=== PATIENT | female | born 1990 | race Caucasian/White ===

== ENCOUNTER 2016-08-31 13:19 | Emergency (ER) | payer OTHER ==
[~2016-08-31] VITALS: Ht 154.9 cm; Wt 59.0 kg
[2016-08-31 13:25] VITALS: BP 93/57; PULSE 59; RESP 16; TEMP 98.1; O2SAT 99
[2016-08-31] MEDS ORDERED: SODIUM CHLOR 0.9% 1000 ML INJ 1,000 ML IV ONE (13:29)
[2016-08-31] MEDS ORDERED: SODIUM CHLORIDE 0.9% FLUSH 10 ML FLUSH IVF PRN (13:30)
[2016-08-31] MEDS ORDERED: BUPR150CR PO (13:31)
[2016-08-31] MEDS ORDERED: LISD70 PO (13:31)
[2016-08-31 13:39] VITALS: O2SAT 98
--- NOTE | 2016-08-31 13:41 | PD ---
HPI Chief Complaint: Syncope/Near-Syncope Time Seen by Provider: 13:29 Travel History International Travel<30 days: No Contact w/Intl Traveler<30days: No Traveled to known affect area: No History of Present Illness HPI Patient presents with complaints of lightheadedness and dizziness while swimming in the ocean. States she been on the beach for several hours. Admits to eating breakfast but did not eat lunch. Denies any alcohol intake. Admits to poor fluid intake. Unsure status. Reports a syncopal episode during her with no reoccurrence. Denies any chest pain shortness of breath urinary or bowel symptoms. Denies nausea vomiting diarrhea or fever. PFSH Past Medical History ?: Unknown LMP: 5 17 Social History Tobacco Use: No Allergies-Medications (Allergen,Severity, Reaction): Coded Allergies: Percocet (Verified Allergy, Unknown, ITCHING N/V, 08/31/16) Reported Meds & Prescriptions Reported Meds & Active Scripts Active Reported Wellbutrin SR 12 HR (Bupropion HCl) 150 Mg Tab 150 Mg PO Q12HR Vyvanse (Lisdexamfetamine Dimesylate) 70 Mg Cap 70 Mg PO DAILY Review of Systems General / Constitutional: No: Fever Eyes: No: Visual changes HENT: No: Headaches Cardiovascular: No: Chest Pain or Discomfort Respiratory: No: Shortness of Breath Gastrointestinal: No: Abdominal Pain Genitourinary: No: Dysuria Musculoskeletal: No: Pain Skin: No Rash Neurologic: Positive: Dizziness, No: Weakness Psychiatric: No: Depression Endocrine: No: Polydipsia Hematologic/Lymphatic: No: Easy Bruising Physical Exam Narrative GENERAL: Well-nourished, well-developed patient. SKIN: Focused skin assessment warm/dry. HEAD: Normocephalic. EYES: No scleral icterus. No injection or drainage. NECK: Supple, trachea midline. No JVD or lymphadenopathy. CARDIOVASCULAR: Regular rate and rhythm without murmurs, gallops, or rubs. RESPIRATORY: Breath sounds equal bilaterally. No accessory muscle use. GASTROINTESTINAL: Abdomen soft, non-tender, nondistended. MUSCULOSKELETAL: No cyanosis, or edema. BACK: Nontender without obvious deformity. No CVA tenderness. Data Data Last Documented VS Vital Signs Date Time Temp Pulse Resp B/P Pulse Ox O2 Delivery O2 Flow Rate FiO2 08/31/16 14:39 84 18 110/72 98 Room Air 08/31/16 13:25 98.1 Orders Electrocardiogram (08/31/16 13:29) Ed Urine Pregnancytest Poc (08/31/16 13:29) Complete Blood Count With Diff (08/31/16 13:29) Comprehensive Metabolic Panel (08/31/16 13:29) Urinalysis - C+S If Indicated (08/31/16 13:29) Blood Glucose (08/31/16 13:29) Ecg Monitoring (08/31/16 13:29) Iv Access Insert/Monitor (08/31/16 13:29) Oximetry (08/31/16 13:29) Sodium Chloride 0.9% Flush (Ns Flush) (08/31/16 13:30) Sodium Chlor 0.9% 1000 Ml Inj (Ns 1000 M (08/31/16 13:29) Sodium Chlorid 0.9% 500 Ml Inj (Ns 500 M (08/31/16 14:15) Acetaminophen (Tylenol) (08/31/16 14:15) Ibuprofen (Motrin) (08/31/16 15:00) Labs Laboratory Tests Test 08/31/16 08/31/16 13:20 13:28 Urine Collection Type CLEAN CATCH Urine Color STRAW Urine Turbidity CLEAR Urine pH 6.0 Urine Specific [place] 1.002 Urine Protein NEG mg/dL Urine Glucose (UA) NEG mg/dL Urine Ketones NEG mg/dL Urine Occult Blood NEG Urine Nitrite NEG Urine Bilirubin NEG Urine Leukocyte Esterase NEG Urine WBC 0-2 /hpf Urine Squamous Epithelial 0-5 /hpf Cells Urine Bacteria OCC /hpf Microscopic Urinalysis Comment CULT NOT INDICATED Urine Collection Time 13:20 White Blood Count 9.2 TH/MM3 Red Blood Count 4.08 MIL/MM3 Hemoglobin 12.1 GM/DL Hematocrit 36.1 % Mean Corpuscular Volume 88.5 FL Mean Corpuscular Hemoglobin 29.7 PG Mean Corpuscular Hemoglobin 33.6 % Concent Red Cell Distribution Width 11.4 % Platelet Count 266 TH/MM3 Mean Platelet Volume 8.2 FL Neutrophils (%) (Auto) 58.8 % Lymphocytes (%) (Auto) 32.7 % Monocytes (%) (Auto) 6.1 % Eosinophils (%) (Auto) 1.8 % Basophils (%) (Auto) 0.6 % Neutrophils # (Auto) 5.3 TH/MM3 Lymphocytes # (Auto) 3.0 TH/MM3 Monocytes # (Auto) 0.6 TH/MM3 Eosinophils # (Auto) 0.2 TH/MM3 Basophils # (Auto) 0.1 TH/MM3 CBC Comment DIFF FINAL Differential Comment Sodium Level 142 MEQ/L Potassium Level 3.7 MEQ/L Chloride Level 111 MEQ/L Carbon Dioxide Level 20.7 MEQ/L Anion Gap 10 MEQ/L Blood Urea Nitrogen 10 MG/DL Creatinine 0.76 MG/DL Estimat Glomerular Filtration 91 ML/MIN Rate Random Glucose 93 MG/DL Calcium Level 8.7 MG/DL Total Bilirubin 0.3 MG/DL Aspartate Amino Transf 18 U/L (AST/SGOT) Alanine Aminotransferase 23 U/L (ALT/SGPT) Alkaline Phosphatase 54 U/L Total Protein 7.0 GM/DL Albumin 3.6 GM/DL [facility] Medical Decision Making Medical Screen Exam Complete: Yes Emergency Medical Condition: Yes Differential Diagnosis Heat stroke, hypoglycemia, dehydration, over exertion Narrative Course Assessment and plan discussed with patient at bedside. EKG reveals sinus bradycardia rate of 55. Patient's symptoms improved with fluids and Tylenol. Symptom free at discharge. Diagnosis Primary Impression: Heat exhaustion Qualified Code: T67.5XXA - Heat exhaustion, initial encounter Patient Instructions: General Instructions Additional Instructions: Encouraged rest fluids and Motrin, encourage follow-up with PCP, encouraged to return to emergency room with onset of any new symptoms. Please provide a work note for tomorrow Med/Other Pt SpecificInfo: No Meds Exist/No RX given Disposition: 01 DISCHARGE HOME Condition: Good Mason Villareal MD Aug 31, 2016 13:41
[2016-08-31 13:42] LABS: AUTOMATED NEUTROPHIL # 5.3 TH/MM3 (1.8-7.7); BASOPHIL # 0.1 TH/MM3 (0-0.2); BASOPHIL % 0.6 % (0.0-2.0); EOSINOPHIL # 0.2 TH/MM3 (0-0.4); EOSINOPHIL % 1.8 % (0.0-4.0); HEMATOCRIT 36.1 % (35.0-46.0); HEMO FLAGS DIFF FINAL; LYMPH % 32.7 % (9.0-44.0); MEAN CELL VOLUME 88.5 FL (80.0-100.0); MEAN CORPUSCULAR HEMOGLOBIN 29.7 PG (27.0-34.0); MEAN CORPUSCULAR HGB CONC 33.6 % (32.0-36.0); MONO % 6.1 % (0.0-8.0); NEUT % 58.8 % (16.0-70.0); PLATELET COUNT 266 TH/MM3 (150-450); RED BLOOD COUNT 4.08 MIL/MM3 (4.00-5.30); RED CELL DISTRIBUTION WIDTH 11.4 % (11.6-17.2); WHITE BLOOD COUNT 9.2 TH/MM3 (4.0-11.0)
[2016-08-31 13:44] LABS: BLOOD, URINE NEG (NEG); GLUCOSE,URINE NEG (NEG); KETONE, URINE NEG (NEG); NITRITE,URINE NEG (NEG)
[2016-08-31 13:48] LABS: METHOD OF COLLECTION CLEAN CATCH; URINE COLOR STRAW (YELLW/STRAW)
[2016-08-31 13:49] LABS: BACTERIA, URINE OCC /hpf; COMMENT (UR) CULT NOT INDICATED; CULTURE IF INDICATED CULT NOT INDICATED; SQUAMOUS EPITHELIAL CELL URINE 0-5 /hpf (0-5); WBC, URINE 0-2 /hpf (0-5)
[2016-08-31 13:51] LABS: CHLORIDE 111 MEQ/L (98-107); POTASSIUM 3.7 MEQ/L (3.5-5.1); SODIUM (NA) 142 MEQ/L (136-145)
[2016-08-31 13:55] LABS: ANION GAP 10 MEQ/L (5-15); BICARBONATE 20.7 MEQ/L (21.0-32.0); BLOOD UREA NITROGEN 10 MG/DL (7-18)
[2016-08-31 13:58] LABS: ALT (GPT) 23 U/L (10-53); AST (GOT) 18 U/L (15-37); GLOMERULAR FILTRATION RATE 91 ML/MIN (>89)
[2016-08-31 13:59] LABS: TOTAL BILIRUBIN ADULT 0.3 MG/DL (0.2-1.0)
[2016-08-31 14:01] LABS: ALKALINE PHOSPHATASE 54 U/L (45-117)
[2016-08-31] MEDS ORDERED: SODIUM CHLORID 0.9% 500 ML INJ 500 ML IV ONE (14:15)
[2016-08-31] MEDS ORDERED: ACETAMINOPHEN 325 MG TAB PO ONE (14:15)
[2016-08-31 14:16] VITALS: BP 99/69; PULSE 82; RESP 18; O2SAT 99
[2016-08-31 14:39] VITALS: BP 110/72; PULSE 84; RESP 18; O2SAT 98
[2016-08-31] MEDS ORDERED: IBUPROFEN 600 MG TAB PO ONE (15:00)
[2016-08-31 15:46] VITALS: BP 113/77
--- NOTE | 2016-09-01 13:13 | EKG ---
Date Performed: 08/31/2016 Time Performed: 13:44:19 PTAGE: 26 years EKG: SINUS BRADYCARDIA BORDERLINE ECG NO PREVIOUS TRACING DOCTOR: Patrick Guajardo Interpretating Date/Time 09/01/2016 13:11:29
== END 2016-08-31 16:16 | disposition home or self-care (01) ==
LOC: PHED 13:19
DX: T67.5XXA Heat exhaustion, unspecified, initial encounter (principal); R00.1 Bradycardia, unspecified
CPT/HCPCS: 80053; 81001; 84703; 85025; 93005; 99284; J7030; J7040

== ENCOUNTER 2016-10-17 22:59 | Emergency (ER) | payer OTHER ==
[~2016-10-17] VITALS: Ht 154.9 cm; Wt 60.0 kg
[~2016-10-17 22:59] MED LIST: BUPR150CR PO; LISD70 PO
[2016-10-17 23:01] VITALS: BP 113/71; PULSE 76; RESP 16; TEMP 97.8; O2SAT 99
[2016-10-18 00:22] VITALS: PULSE 65; RESP 16
--- NOTE | 2016-10-18 00:26 | RADRPT ---
EXAM DATE/TIME: 10/18/2016 00:20 [facility] COMPARISON: No previous studies available for comparison. INDICATIONS : Left upper chest pain x 1 week MEDICAL HISTORY : None. SURGICAL HISTORY : None. ENCOUNTER: Initial ACUITY: 1 week PAIN SCORE: 8/10 LOCATION: Bilateral chest FINDINGS: A single view of the chest demonstrates the lungs to be symmetrically aerated without evidence of mas s, infiltrate or effusion. The cardiomediastinal contours are unremarkable. Osseous structures are intact. CONCLUSION: Normal examination. Watson Brown MD on October 18, 2016 at 0:24 Board Certified Radiologist. This report was verified electronically.
[2016-10-18 00:34] LABS: AUTOMATED NEUTROPHIL # 5.9 TH/MM3 (1.8-7.7); BASOPHIL # 0.1 TH/MM3 (0-0.2); BASOPHIL % 0.6 % (0.0-2.0); EOSINOPHIL # 0.1 TH/MM3 (0-0.4); EOSINOPHIL % 1.3 % (0.0-4.0); HEMATOCRIT 37.4 % (35.0-46.0); HEMO FLAGS DIFF FINAL; LYMPH % 33.1 % (9.0-44.0); LYMPHOCYTE # 3.4 TH/MM3 (1.0-4.8); MEAN CELL VOLUME 92.3 FL (80.0-100.0); MEAN CORPUSCULAR HGB CONC 33.6 % (32.0-36.0); MONO % 7.8 % (0.0-8.0); NEUT % 57.2 % (16.0-70.0); PLATELET COUNT 289 TH/MM3 (150-450); RED BLOOD COUNT 4.06 MIL/MM3 (4.00-5.30); RED CELL DISTRIBUTION WIDTH 12.8 % (11.6-17.2); WHITE BLOOD COUNT 10.3 TH/MM3 (4.0-11.0)
--- NOTE | 2016-10-18 00:39 | PD ---
HPI Chief Complaint: Chest Pain Time Seen by Provider: 00:23 Travel History International Travel<30 days: No Contact w/Intl Traveler<30days: No Traveled to known affect area: No History of Present Illness HPI 26-year-old female complaining left-sided chest pain. Patient states that she has intermittent chest pain for the past month. Patient states the pain has been constant and worse for the past week. Patient states the pain is sharp pain aching pain localized to left chest with radiation to the left upper back. Patient denies any fever chills. Patient denies any coughing congestion. Patient denies any recent injury to the chest wall. Patient states the pain is worse with deep breathing and movement. Patient denies any history of CAD. Patient denies history hypertension, diabetes, hyperlipidemia. Patient is a nonsmoker. Patient denies family history of heart disease early in life. PFSH Past Medical History ADHD: Yes Diminished Hearing: No Immunizations Current: Yes Tetanus Vaccination: < 5 Years Influenza Vaccination: No ?: Not LMP: 10/12/2016 Past Surgical History Other Surgery: Yes (PILONIDAL CYST, BREAST REDUCTION) Social History Alcohol Use: No Tobacco Use: No Substance Use: No Allergies-Medications (Allergen,Severity, Reaction): Coded Allergies: acetaminophen (Unverified Allergy, Unknown, ITCHING N/V, 10/17/16) oxycodone (Unverified Allergy, Unknown, ITCHING N/V, 10/17/16) Reported Meds & Prescriptions Reported Meds & Active Scripts Active Reported Wellbutrin SR 12 HR (Bupropion HCl) 150 Mg Tab 150 Mg PO Q12HR Vyvanse (Lisdexamfetamine Dimesylate) 70 Mg Cap 70 Mg PO DAILY Review of Systems General / Constitutional: No: Fever Eyes: No: Visual changes HENT: No: Headaches Cardiovascular: Positive: Chest Pain or Discomfort Respiratory: No: Shortness of Breath Gastrointestinal: No: Abdominal Pain Genitourinary: No: Dysuria Musculoskeletal: No: Pain Skin: No Rash Neurologic: No: Weakness Psychiatric: No: Depression Endocrine: No: Polydipsia Hematologic/Lymphatic: No: Easy Bruising Physical Exam Narrative GENERAL: Well-nourished, well-developed patient. SKIN: Focused skin assessment warm/dry. HEAD: Normocephalic. EYES: No scleral icterus. No injection or drainage. NECK: Supple, trachea midline. No JVD or lymphadenopathy. CARDIOVASCULAR: Regular rate and rhythm without murmurs, gallops, or rubs. RESPIRATORY: Breath sounds equal bilaterally. No accessory muscle use. GASTROINTESTINAL: Abdomen soft, non-tender, nondistended. MUSCULOSKELETAL: No cyanosis, or edema. Patient has reproducible chest wall tenderness on palpation anterior left chest wall area. No crepitus no deformity noted. BACK: Nontender without obvious deformity. No CVA tenderness. Neurologic exam normal. Data Data Last Documented VS Vital Signs Date Time Temp Pulse Resp B/P (MAP) Pulse Ox O2 Delivery O2 Flow Rate FiO2 10/18/16 00:22 100 Room Air 10/18/16 00:22 65 16 10/17/16 23:01 97.8 Orders Orders Electrocardiogram (10/18/16 00:04) Complete Blood Count With Diff (10/18/16 00:04) Basic Metabolic Panel (Bmp) (10/18/16 00:04) Ckmb (Isoenzyme) Profile (10/18/16 00:04) Troponin I (10/18/16 00:04) Chest, Single Ap (10/18/16 00:04) Iv Access Insert/Monitor (10/18/16 00:04) Ecg Monitoring (10/18/16 00:04) Oxygen Administration (10/18/16 00:04) Oximetry (10/18/16 00:04) Ketorolac Inj (Toradol Inj) (10/18/16 00:45) Labs Laboratory Tests Test 10/18/16 00:20 White Blood Count 10.3 TH/MM3 Red Blood Count 4.06 MIL/MM3 Hemoglobin 12.6 GM/DL Hematocrit 37.4 % Mean Corpuscular Volume 92.3 FL Mean Corpuscular Hemoglobin 31.0 PG Mean Corpuscular Hemoglobin Concent 33.6 % Red Cell Distribution Width 12.8 % Platelet Count 289 TH/MM3 Mean Platelet Volume 8.3 FL Neutrophils (%) (Auto) 57.2 % Lymphocytes (%) (Auto) 33.1 % Monocytes (%) (Auto) 7.8 % Eosinophils (%) (Auto) 1.3 % Basophils (%) (Auto) 0.6 % Neutrophils # (Auto) 5.9 TH/MM3 Lymphocytes # (Auto) 3.4 TH/MM3 Monocytes # (Auto) 0.8 TH/MM3 Eosinophils # (Auto) 0.1 TH/MM3 Basophils # (Auto) 0.1 TH/MM3 CBC Comment DIFF FINAL Differential Comment Blood Urea Nitrogen 13 MG/DL Creatinine 0.85 MG/DL Random Glucose 79 MG/DL Calcium Level 8.8 MG/DL Sodium Level 141 MEQ/L Potassium Level 3.9 MEQ/L Chloride Level 104 MEQ/L Carbon Dioxide Level 28.4 MEQ/L Anion Gap 9 MEQ/L Estimat Glomerular Filtration Rate 80 ML/MIN Total Creatine Kinase 49 U/L Troponin I LESS THAN 0.02 NG/ML MDM Medical Decision Making Medical Screen Exam Complete: Yes Emergency Medical Condition: Yes Interpretation(s) 1:24 AM. Chest x-ray shows normal exam. CBC within normal limit. BMP within normal limits. Cardiac enzymes are normal. Differential Diagnosis Differential diagnosis including costochondritis, pleurisy, angina, HI, PE, pneumothorax. Narrative Course 26-year-old female with left-sided chest pain. Toradol 30 mg IV given. Diagnosis Primary Impression: Atypical chest pain Patient Instructions: General Instructions Additional Instructions: Take medication as needed for pain. Follow-up with personal physician. Return if worse. Med/Other Pt SpecificInfo: Prescription(s) given Scripts Methocarbamol (Robaxin) 750 Mg Tab 750 MG PO QID for Pain, #40 TAB 0 Refills Prov: Bert Brown MD 10/18/16 Meloxicam (Mobic) 15 Mg Tab 15 MG PO DAILY for Pain, #20 TAB 0 Refills Prov: Bert Brown MD 10/18/16 Disposition: 01 DISCHARGE HOME Condition: Stable Bert Brown MD Oct 18, 2016 00:39
[2016-10-18] MEDS ORDERED: KETOROLAC TROMETHAMINE 30 MG/ML (IVP) VIAL IV PUSH ONE (00:45)
[2016-10-18 00:53] LABS: ANION GAP 9 MEQ/L (5-15); BICARBONATE 28.4 MEQ/L (21.0-32.0); BLOOD UREA NITROGEN 13 MG/DL (7-18); CHLORIDE 104 MEQ/L (98-107); CREATINE KINASE 49 U/L (26-192); GLOMERULAR FILTRATION RATE 80 ML/MIN (>89); POTASSIUM 3.9 MEQ/L (3.5-5.1); SODIUM (NA) 141 MEQ/L (136-145)
[2016-10-18] MEDS ORDERED: ROBA750T PO (01:40)
[2016-10-18] MEDS ORDERED: MOBI15TA PO (01:40)
--- NOTE | 2016-10-18 18:21 | EKG ---
Date Performed: 10/17/2016 Time Performed: 23:58:27 PTAGE: 26 years EKG: Sinus rhythm WITH SINUS ARRHYTHMIA NORMAL ECG Compared to prior tracing no significant change DOCTOR: Isaiah Flores Interpretating Date/Time 10/18/2016 18:20:58
== END 2016-10-18 02:03 | disposition home or self-care (01) ==
LOC: NEPC 22:59
DX: R07.89 Other chest pain (principal); F90.9 Attention-deficit hyperactivity disorder, unspecified type; I49.8 Other specified cardiac arrhythmias; Z79.899 Other long term (current) drug therapy; Z88.5 Allergy status to narcotic agent
CPT/HCPCS: 71010; 80048; 82550; 84484; 85025; 93005; 96374; 99285; J1885

== ENCOUNTER 2017-02-14 13:21 | Emergency (ER) | payer OTHER ==
[~2017-02-14] VITALS: Ht 154.9 cm; Wt 59.0 kg
[~2017-02-14 13:21] MED LIST changes: +MOBI15TA PO; +ROBA750T PO
[2017-02-14 13:22] VITALS: BP 132/76; PULSE 60; RESP 16; TEMP 98.2; O2SAT 100
--- NOTE | 2017-02-14 13:59 | PD ---
HPI Chief Complaint: Services Rep Problem/Complaint Time Seen by Provider: 13:57 Travel History International Travel<30 days: No Contact w/Intl Traveler<30days: No Traveled to known affect area: No History of Present Illness HPI 26-year-old female patient who had a colposcopy done on Thursday by Dr. North , presents to the ER today because she states that she has been spotting and had some expected cramping and bleeding for several days but today was having heavier vaginal bleeding and cramping. She now states that her pelvic pain is a 7 out of 10. She is not due for menses for at least 9 days. She denies any fevers or any other issues. Modifying Factors: None Associated Signs & Symptoms: Pelvic cramping, vaginal bleeding Risk Factors: Colposcopy on Thursday Past Medical History ADHD: Yes Diminished Hearing: No Immunizations Current: Yes Tetanus Vaccination: Unknown Influenza Vaccination: No ?: Not LMP: 01/19/17 Past Surgical History Other Surgery: Yes (PILONIDAL CYST, BREAST REDUCTION, COLONOSCOPY) Social History Alcohol Use: No Tobacco Use: No Substance Use: No Allergies-Medications (Allergen,Severity, Reaction): Coded Allergies: acetaminophen (Unverified Allergy, Unknown, ITCHING N/V, 02/14/17) oxycodone (Unverified Allergy, Unknown, ITCHING N/V, 02/14/17) Reported Meds & Prescriptions Reported Meds & Active Scripts Active Robaxin (Methocarbamol) 750 Mg Tab 750 Mg PO QID Mobic (Meloxicam) 15 Mg Tab 15 Mg PO DAILY Reported Wellbutrin SR 12 HR (Bupropion HCl) 150 Mg Tab 150 Mg PO Q12HR Vyvanse (Lisdexamfetamine Dimesylate) 70 Mg Cap 70 Mg PO DAILY Review of Systems Except as stated in HPI: all other systems reviewed are Neg Physical Exam Narrative GENERAL: Well-developed young female patient currently mild distress. Awake and oriented 3. SKIN: Focused skin assessment warm/dry. HEAD: Atraumatic. Normocephalic. EYES: Pupils equal and round. No scleral icterus. No injection or drainage. ENT: No nasal bleeding or discharge. Mucous membranes pink and moist. NECK: Trachea midline. No JVD. CARDIOVASCULAR: Regular rate and rhythm. No murmur appreciated. RESPIRATORY: No accessory muscle use. Clear to auscultation. Breath sounds equal bilaterally. GASTROINTESTINAL: Abdomen soft, mild pelvic tenderness without guarding or rebound, nondistended. Hepatic and splenic margins not palpable. GENITOURINARY: Normal external genitalia without lesions or erythema. Vaginal vault with dark blood but no significant drainage. Cervical os was closed without drainage. No cervical motion tenderness. Uterus nontender and nonenlarged. Bilateral adnexa nontender without masses. MUSCULOSKELETAL: No obvious deformities. No clubbing. No cyanosis. No edema. NEUROLOGICAL: Awake and alert. No obvious cranial nerve deficits. Motor grossly within normal limits. Normal speech. PSYCHIATRIC: Appropriate mood and affect; insight and judgment normal. Data Data Last Documented VS Vital Signs Date Time Temp Pulse Resp B/P (MAP) Pulse Ox O2 Delivery O2 Flow Rate FiO2 02/14/17 13:36 18 02/14/17 13:22 98.2 60 132/76 (94) 100 Room Air Orders Orders Urinalysis - C+S If Indicated (02/14/17 13:57) Ed Urine Pregnancytest Poc (02/14/17 13:57) Us Pelvis Comp W Doppler (02/14/17 14:43) Ed Discharge Order (02/14/17 16:55) Labs Laboratory Tests Test 02/14/17 14:00 Urine Color LIGHT-YELLOW Urine Turbidity CLEAR Urine pH 6.5 Urine Specific [place] 1.004 Urine Protein NEG mg/dL Urine Glucose (UA) NEG mg/dL Urine Ketones NEG mg/dL Urine Occult Blood LARGE Urine Nitrite NEG Urine Bilirubin NEG Urine Urobilinogen LESS THAN 2.0 MG/DL Urine Leukocyte Esterase NEG Urine RBC 2 /hpf Urine WBC LESS THAN 1 /hpf Urine Squamous Epithelial Cells <1 /hpf Urine Bacteria OCC /hpf Microscopic Urinalysis Comment CULT NOT INDICATED MDM Medical Decision Making Medical Screen Exam Complete: Yes Emergency Medical Condition: Yes Medical Record Reviewed: Yes Interpretation(s) Laboratory Tests Test 02/14/17 14:00 Urine Occult Blood LARGE (NEG) Urine Bacteria OCC /hpf (NONE) Last 24 hours Impressions Pelvis Ultrasound 02/14/17 1443 Signed Impressions: Service Date/Time: Thursday, February 14, 2017 15:24 - CONCLUSION: Pelvic ultrasound within normal limits. Ovaries are symmetric in size and demonstrate normal color Doppler flow. Neel Mcdonald MD Differential Diagnosis Pelvic pains, vaginal bleeding: Postprocedural bleeding versus dysmenorrhea versus UTI Narrative Course She is not by urine test. Vital signs are stable in the ER. She has some bleeding on pelvic exam but at this point, the bleeding is not brisk. Ultrasound did not show any signs of acute PROGRAM DEVELOPER processes. Case is discussed with Dr. North, patient's LIFT OPERATOR, and she states her like the patient to be started on indomethacin, Loestrin, Cipro and Flagyl. She states the patient can follow-up with her in the office on Thursday. Return for any worsening in bleeding, pain, and as needed. The plan has been discussed with the patient and she states understanding. Diagnosis Primary Impression: Vaginal bleeding, abnormal Additional Instructions: See her LIFT OPERATOR for follow-up in a few days. Return for any worsening in pain, bleeding, and as needed. Med/Other Pt SpecificInfo: Prescription(s) given Scripts Metronidazole (Flagyl) 500 Mg Tab 500 MG PO TID for Infection for 7 Days, TAB 0 Refills Prov: Felipa Damon MD 02/14/17 Ciprofloxacin (Cipro) 500 Mg Tab 500 MG PO BID for Infection for 7 Days, #14 TAB 0 Refills Prov: Felipa Damon MD 02/14/17 Indomethacin (Indomethacin) 50 Mg Cap 50 MG PO TID, #21 CAP 0 Refills Take with food, milk, or antacids to decrease stomach adverse effects. Prov: Felipa Damon MD 02/14/17 Norethindrone-Ethinyl Estradiol (Loestrin 1.5/30) 1.5-30 Mg-Mcg Tab 1 TAB PO DAILY for Control, #1 PACK 0 Refills Prov: Felipa Damon MD 02/14/17 Disposition: DISCHARGE HOME Condition: Stable Felipa Damon MD Feb 14, 2017 13:59
[2017-02-14 14:24] LABS: BACTERIA, URINE OCC /hpf; BILIRUBIN, URINE NEG (NEG); BLOOD, URINE LARGE (NEG); GLUCOSE,URINE NEG (NEG); KETONE, URINE NEG (NEG); NITRITE,URINE NEG (NEG); PH, URINE 6.5 (5.0-8.5); SQUAMOUS EPITHELIAL CELL URINE <1 /hpf (0-5); URINE COLOR LIGHT-YELLOW (YELLW/STRAW); URINE LEUKOCYTE ESTERASE NEG (NEG)
--- NOTE | 2017-02-14 15:53 | RADRPT ---
EXAM DATE/TIME: 02/14/2017 15:24 [facility] COMPARISON: No previous studies available for comparison. INDICATIONS : Bleeding. MEDICAL HISTORY : Attention deficit hyperactivity disorder. Pilonidal cyst. SURGICAL HISTORY : Breast reduction. Colonoscopy. ENCOUNTER: Initial ACUITY: 1 day PAIN SCORE: 7/10 LOCATION: Bilateral pelvis MEASUREMENTS: UTERUS: 7.0 x 4.6 x 3.5 cm ENDOMETRIAL STRIPE: 5 mm RIGHT OVARY: 2.9 x 2.1 x 1.6 cm LEFT OVARY: 3.4 x 1.7 x 2.0 cm FINDINGS: UTERUS: The myometrium has homogeneous echotexture without mass. RIGHT OVARY: Ovary contains no mass or significant cystic lesion. LEFT OVARY: Ovary contains no mass or significant cystic lesion. MISCELLANEOUS: No free fluid. CONCLUSION: Pelvic ultrasound within normal limits. Ovaries are symmetric in size and demonstrate normal color Do ppler flow. Neel Mcdonald MD on February 14, 2017 at 15:50 Board Certified Radiologist. This report was verified electronically.
[2017-02-14] MEDS ORDERED: INDO50CA PO (17:11)
[2017-02-14] MEDS ORDERED: NORE1TAB57 PO (17:11)
[2017-02-14] MEDS ORDERED: CIPR-9 PO (17:11)
[2017-02-14] MEDS ORDERED: METR-1 PO (17:11)
[2017-02-14 18:09] VITALS: BP 113/68; PULSE 73; RESP 18; O2SAT 98
[2017-02-14 18:11] VITALS: BP 113/68
== END 2017-02-14 18:22 | disposition home or self-care (01) ==
LOC: NEPD 13:21
DX: N93.9 Abnormal uterine and vaginal bleeding, unspecified (principal); F90.9 Attention-deficit hyperactivity disorder, unspecified type; Z79.899 Other long term (current) drug therapy; Z88.6 Allergy status to analgesic agent; Z88.5 Allergy status to narcotic agent
CPT/HCPCS: 76856; 81001; 84703; 93975; 99285

== ENCOUNTER 2017-06-29 14:46 | Emergency (ER) | payer SELFPAY, OTHER ==
[2017-06-29 15:42] LABS: BILIRUBIN, URINE NEG (NEG); BLOOD, URINE NEG (NEG); GLUCOSE,URINE NEG (NEG); KETONE, URINE NEG (NEG); NITRITE,URINE NEG (NEG); SQUAMOUS EPITHELIAL CELL URINE 1 /hpf (0-5); URINE COLOR LIGHT-YELLOW (YELLW/STRAW); URINE LEUKOCYTE ESTERASE NEG (NEG)
[2017-06-29 15:43] LABS: COMMENT (UR) CULT NOT INDICATED; CULTURE IF INDICATED CULT NOT INDICATED
== END 2017-06-29 17:56 | disposition left against medical advice (07) ==
LOC: NED 14:46
DX: I49.8 Other specified cardiac arrhythmias (principal); Z53.21 Procedure and treatment not carried out due to patient leaving prior to being seen by health care provider
CPT/HCPCS: 81001; 84703; 93005; 99281